=== PATIENT | female | born 1950 | race Caucasian/White ===

== ENCOUNTER 2017-04-10 17:22 | Inpatient (IN) ==
--- NOTE | 2017-04-10 19:14 | Emergency Department Note ---
Arrival - Arrival Chief Complaint: Arrhythmia/Palpitations Stated Complaint: throwing up ED Nursing Triage Note: pt ambulatory to triage with c/o having n/v with palpitations. pt states onset today. pt states she was here last night in ER for n/v and sent home. Mode of Arrival: Ambulatory Time Seen by Provider: 04/10/17 19:11 - History of Present Illness HPI Narrative: This is a 67-year-old white female is otherwise healthy and who was initially seen on March 30 with intractable vomiting vertigo and hypokalemia for which he was admitted to [facility] and treated with intravenous potassium replacement and Phenergan and discharged after 4 days. Seemed to improve but the vomiting returned and she went to the emergency department in [facility] on April 06 for vertigo and intractable vomiting where laboratory tests were normal she was given intravenous fluids and medication for nausea and discharge. On April 07 and April 08 the patient had improvement in her symptoms. However on April 09 the vomiting returned with vertigo and she came to the emergency department at [facility] where she had normal laboratory tests and a CT scan which showed edematous antral wall thickening and mildly dilated small loops of bowel approximately but normal caliber distally. The patient was discharged but the vomiting returned this morning associated with vertigo she returned to the emergency department. The patient denies any chest pain syncope palpitations nor headache. There is no fever or chills. She has had no motor weakness or difficulty with speech. Since March 30 the patient says that she has lost 35 pounds. Allergies/Adverse Reactions: Allergies Allergy/AdvReac Type Severity Reaction Status Date / Time codeine AdvReac ANAPHYLAXIS Verified 04/10/17 17:54 Home Medications: Home Medications Medication Instructions Recorded Confirmed Type ALPRAZolam [Xanax] 1 mg PO BID PRN 04/09/17 04/09/17 History Celecoxib [Celebrex] 200 mg PO DAILY 04/09/17 04/09/17 History Estradiol Tab [Estrace Tab] 1 mg PO DAILY 04/09/17 04/09/17 History Fluoxetine HCl [Prozac] 40 mg PO QAM 04/09/17 04/09/17 History Metoclopramide Tab [Reglan Tab] 10 mg PO Q8H PRN #7 tablet 04/09/17 Rx Morphine Sulfate [Morphine ER Cap] 60 mg PO BID 04/09/17 04/09/17 History Ondansetron HCl 8 mg PO Q8H PRN 04/09/17 04/09/17 History Ondansetron Odt Tab [Zofran Odt] 4 mg PO Q8H PRN #10 tablet 04/09/17 Rx Pantoprazole Tab [Protonix Tab] 40 mg PO DAILY 04/09/17 04/09/17 History Temazepam [Restoril] 15 mg PO BEDTIME PRN 04/09/17 04/09/17 History Review of System - Review of System Constitutional: Absent: fever, night sweats Eyes: Absent: redness, vision change Head/Ears/Nose/Throat: Absent: epistaxis, nasal drainage Respiratory: Absent: respiratory distress, wheezing Cardiovascular: Absent: dyspnea on exertion, orthopnea, edema Gastrointestinal: Absent: nausea, vomiting Genitourinary female: Absent: dysuria, frequency Musculoskeletal: Absent: joint swelling, lower back pain, leg pain, neck pain Skin: Absent: change in color, change in hair/nails, pruritus Neurological: Absent: headache, numbness, paresthesias, confusion Psychiatric: Absent: anxiety Endocrine: Absent: as per HPI, heat intolerance, polydipsia Hematological/Lymphatic: Absent: easy bruising, lymphadenopathy Allergic/Immunologic: Absent: urticaria, itchy eyes Medical,Surgical,& Family Hx - Medical History Cardio: History of: Hypertension - Social History Smoking Status: Never smoker Frequency of Alcohol Use: None Type of Drug Use: None Exam Vital Signs: Vital Signs Temperature 99.6 F 04/10/17 17:50 Pulse Rate 99 H 04/10/17 17:50 Respiratory Rate 18 04/10/17 17:50 Blood Pressure 146/99 04/10/17 17:50 O2 Sat by Pulse Oximetry 100 04/10/17 17:50 - General General appearance: alert - Eye Eye exam: Present: PERRL, EOMI - ENT ENT exam: Present: normal exam, normal oropharynx - Neck Neck exam: Present: normal inspection, full ROM - Chest Chest inspection: Present: normal inspection - Respiratory Respiratory exam: Present: normal lung sounds bilaterally - Cardiovascular Cardiovascular exam: Present: regular rate, normal rhythm - Abdominal Exam Abdominal exam: Present: soft, normal bowel sounds - Extremities Exam Extremities exam: Present: normal inspection, full ROM - Back Exam Back exam: Present: normal inspection, full ROM - Neurological Exam Neurological exam: Present: alert, oriented X3 - Psychiatric Psychiatric exam: Present: normal affect, normal mood - Skin Skin exam: Present: warm, dry Course Course Narrative: The patient's CT scan of the brain is normal. A repeat the CT scan of the abdomen did not show a small bowel obstruction or any other explanation for her intractable vomiting. The patient has not had vertigo while in the emergency department. The laboratory tests are normal. The abdominal exam is nonsurgical. Vital signs are normal. However the patient still feels nauseated. The case was discussed with the hospitalist who agreed to admit the patient because of the 35 pound weight loss ongoing vomiting and vertigo. She will be admitted for consideration of an MRI scan of the brain for possible cerebellar lesion causing the vertigo and to manage her intractable vomiting. Results - Labs CBC & BMP: 04/10/17 19:14 04/10/17 19:14 Disposition Clinical Impression: Intractable vomiting, Vertigo Disposition: Disch To Home/Self Care
[2017-04-10] MEDS ORDERED: SODIUM CHLORIDE 0.9% 1,000 ML IV STA (19:32)
[2017-04-10] MEDS ORDERED: ONDANSETRON 4 MG/2 ML VIAL IV STA (19:34)
[2017-04-10] MEDS ORDERED: MECLIZINE 25 MG TABLET PO STA (19:34)
[2017-04-10] MEDS ORDERED: MECLIZINE 25 MG TABLET ONE (19:50)
[2017-04-10] MEDS ORDERED: ONDANSETRON 4 MG/2 ML VIAL ONE (19:50)
[2017-04-10 19:58] LABS: Basophils % 0.2 % (0.0-0.8); Eosinophils % 0.3 % (0.00-10.9); Hematocrit 37.3 VOL% (35.7-47.0); Hemoglobin 13.3 GM/DL (12.0-16.0); Immature Granulocytes % 0.6 %; Immature Granulocytes Absolute 0.04 #; Lymphocytes # 1.7 10*3/uL (1.4-4.0); Lymphocytes % 27.8 % (21.3-54.2); Mean Corpuscular HGB Conc 35.7 GM/DL (32-36); Mean Corpuscular Hemoglobin 31 PG (27-34); Mean Corpuscular Volume 86.3 FL (87-102); Mean Platelet Volume 9.2 FL (9.6-12.0); Monocytes # 0.6 10*3/uL (0.11-0.8); Monocytes % 8.8 % (1.7-12.7); Neutrophils # 3.9 10*3/uL (1.4-7.4); Neutrophils % 62.3 % (38.7-73.9); Platelet Count 272 T/CUMM (130-400); Red Blood Count 4.32 MC/CUMM (3.8-5.5); Red Cell Distribution Width 13.2 % (9.3-17.3); White Blood Count 6.3 T/CUMM (4-12)
[2017-04-10 20:09] LABS: Albumin 4.3 G/DL (3.4-5.0); Bilirubin,Total 0.7 MG/DL (0.2-1.0); Calcium 9.2 MG/DL (8.5-10.1); Osmolality,Calculated 278.3 MOS/KG (273-304); Potassium 3.4 MMOL/L (3.5-5.1); Total Protein 7.1 G/DL (6.4-8.3)
--- NOTE | 2017-04-10 20:10 | CT Report ---
History of vertigo and right-sided headache The ventricles are normal in size. No acute intracranial hemorrhage, mass effect, or evidence of acute cortical stroke seen. Impression: No acute intracranial pathology seen. The CT exam was performed using one or more of the following dose reduction techniques: Automated exposure control, adjustment of the mA and/or kV according to patient size, or use of iterative reconstruction technique. PROCEDURE INTERPRETED AT [facility] DEPARTMENT OF RADIOLOGY Final Report Signed by: Dr. Shannan Chen
--- NOTE | 2017-04-10 20:17 | CT Report ---
History is abdominal pain and distention 100 cc Omni 350 utilized Comparison no focal defects seen in the liver, spleen, pancreas, adrenals, or kidneys. Again seen are bilateral 2-4 mm renal calculi Again seen is edematous wall thickening of the antrum of the stomach Clips present in the gallbladder fossa No enlarged retroperitoneal nodes seen Pelvis: no free fluid or focal inflammatory change is seen. Impression: 1. Diffuse edematous wall thickening in the antrum of the stomach again seen 2. Bilateral nephrolithiasis The CT exam was performed using one or more of the following dose reduction techniques: Automated exposure control, adjustment of the mA and/or kV according to patient size, or use of iterative reconstruction technique. PROCEDURE INTERPRETED AT [facility] DEPARTMENT OF RADIOLOGY Final Report Signed by: Dr. Shannan Chen
[2017-04-10 20:29] LABS: Lactic Acid 1.1 MMOL/L (0.4-2.0)
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
[2017-04-10] MEDS ORDERED: hydrALAZINE 20 MG/1 ML VIAL IV PRN (23:17)
[2017-04-10] MEDS ORDERED: PANTOPRAZOLE 40 MG VIAL IV ONE (23:17)
[2017-04-10] MEDS ORDERED: DIAZEPAM 10 MG/2 ML SYRINGE IV PRN (23:17)
[2017-04-10] MEDS ORDERED: SODIUM CHLORIDE 0.9% 1,000 ML IV ONE (23:17)
[2017-04-11] MEDS: POTASSIUM CHLORIDE RIDER 10 MEQ in PREMIX 1 EACH IV SCH ×5 (00:27→09:26)
[2017-04-11] MEDS: CLINDAMYCIN INJ 600 MG in PREMIX 1 EACH IV SCH ×3 (00:28→16:30)
[2017-04-11] MEDS: SODIUM CHLORIDE 0.9% 1,000 ML IV SCH ×5 (00:28→23:57)
[2017-04-11] MEDS: metroNIDAZOLE INJ 500 MG in PREMIX 1 EACH IV SCH ×4 (01:17→18:00)
[2017-04-11] MEDS: ONDANSETRON 4 MG/2 ML VIAL IV PRN ×2 (01:19→11:56)
[2017-04-11] MEDS: MORPHINE 2 MG/1 ML SYRINGE IV PRN (01:24)
[2017-04-11 03:21] LABS: Apearance,Urine CLEAR (Clear); Bilirubin,Urine Negative (Negative); Blood, Urine Negative (Negative); Glucose,Urine (UA) Negative (Negative); Ketones,Urine 20 mg/dL (Negative); Mucus,Urine Occasional /LPF (Occasional); Nitrite,Urine Negative (Negative); Protein,Urine Negative; Squamous Epithelial Cell,Urine Occasional /HPF (0-10); Urine Color Yellow (Yellow); Urine Urobilinogen < 2.0 EU/DL (0.2-1.0)
[2017-04-11 06:02] LABS: Basophils % 0.4 % (0.0-0.8); Eosinophils % 0.8 % (0.00-10.9); Hematocrit 29.9 VOL% (35.7-47.0); Hemoglobin 10.6 GM/DL (12.0-16.0); Immature Granulocytes % 0.4 %; Immature Granulocytes Absolute 0.02 #; Lymphocytes # 1.9 10*3/uL (1.4-4.0); Lymphocytes % 38.6 % (21.3-54.2); Mean Corpuscular HGB Conc 35.5 GM/DL (32-36); Mean Corpuscular Hemoglobin 31 PG (27-34); Mean Corpuscular Volume 86.9 FL (87-102); Mean Platelet Volume 9.5 FL (9.6-12.0); Monocytes # 0.5 10*3/uL (0.11-0.8); Monocytes % 9.7 % (1.7-12.7); Neutrophils # 2.5 10*3/uL (1.4-7.4); Neutrophils % 50.1 % (38.7-73.9); Platelet Count 225 T/CUMM (130-400); Red Blood Count 3.44 MC/CUMM (3.8-5.5); Red Cell Distribution Width 13.3 % (9.3-17.3)
[2017-04-11 06:24] LABS: Albumin 3.2 G/DL (3.4-5.0); Bilirubin,Total 0.6 MG/DL (0.2-1.0); Osmolality,Calculated 277.3 MOS/KG (273-304); Potassium 3.5 MMOL/L (3.5-5.1); Total Protein 5.6 G/DL (6.4-8.3)
[2017-04-11] MEDS ORDERED: PROPOFOL 200 MG/20 ML VIAL IV ONE (09:00)
[2017-04-11] MEDS ORDERED: LIDOCAINE 2% 5 ML VIAL ONE (09:00)
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
[2017-04-11] MEDS: PANTOPRAZOLE 40 MG VIAL IV SCH (09:36)
--- NOTE | 2017-04-11 11:45 | History and Physical Update ---
History and Physical Update - History and Physical H&P was reviewed, the patient examined and there: are no changes in the patients condition since last H&P was completed. - Physical Exam Mental Status: alert and oriented Heart: regular rate and rhythm Lung: clear to auscultation Abdomen: within normal limits Vitals: within normal limits
[2017-04-11] MEDS ORDERED: ONDANSETRON 4 MG/2 ML VIAL ONE (11:55)
--- NOTE | 2017-04-11 11:57 | Operative Note ---
Date of procedure: 04/11/17 Pre-op diagnosis: Nausea/vomiting, antral thickening on CT Procedure: Procedure: Esophagogastroduodenoscopy Brief clinical abstract: 67-year-old female has been sick for the last 2 weeks with recurrent nausea/vomiting and abdominal pain which she says is mainly lower abdominal pain. She has lost over 20 pounds weight since this began. On CT abdomen here there is thickening in the gastric antrum. Indication for procedure: Recurrent nausea/vomiting, abnormal CT appearance of stomach Endoscopic findings:[After informed consent was obtained, the patient was placed in the left lateral decubitus position. The gastroscope was inserted in the upper esophagus under direct vision with no resistance encountered. Esophageal mucosa appeared normal with squamocolumnar junction sharply demarcated above a small hiatal hernia. The endoscope was advanced in the stomach which was carefully examined including retroflexed view of the cardia and fundus. There was some patchy subepithelial hemorrhage in the gastric antrum but no ulcers or mass-effect seen. Remainder the stomach appeared normal. The pyloric channel, duodenal bulb, second and third portion of the duodenum appeared normal. The endoscope was removed and patient appeared to tolerate the procedure well. Impression: #1 small hiatal hernia #2 moderate antritis Recommendations: Continue PPI therapy for now. Continue empiric antibiotics for now for presumed infectious GI process. She is due for surveillance colonoscopy at some point with history of colon polyps. Anesthesia: other (tiva) Surgeon / Physician: Santiago Tavera Estimated blood loss: none Specimens: none sent Condition: stable Disposition: post procedure unit Results - Labs CBC & BMP: 04/11/17 04:42 04/11/17 04:42 Discharge Plan - Discharge Medications No Action Estradiol Tab [Estrace Tab] 1 mg PO DAILY Celecoxib [Celebrex] 200 mg PO DAILY Temazepam [Restoril] 15 mg PO BEDTIME PRN PRN Reason: Sleep Fluoxetine HCl [Prozac] 40 mg PO QAM Pantoprazole Tab [Protonix Tab] 40 mg PO DAILY Morphine Sulfate [Morphine ER Cap] 60 mg PO BID ALPRAZolam [Xanax] 1 mg PO BID PRN PRN Reason: Anxiety Ondansetron HCl 8 mg PO Q8H PRN PRN Reason: Nausea/Vomiting Metoclopramide Tab [Reglan Tab] 10 mg PO Q8H PRN #7 tablet PRN Reason: Nausea - Follow Up or Referral - Forms/Instructions
--- NOTE | 2017-04-11 12:23 | Hospitalist Progress Note ---
Assessment and Plan (1) Intractable vomiting Status: Acute Assessment and plan: 1)gastritis at EGD- on PPI. she is not vomiting since admission, but hasn't eaten either. 2)hypokalemia- replaced 3)weight loss- reports 30 pound weight loss over 3.5 weeks during this illness. She was admitted at [facility] and at [facility] for IVF over the course of it but symptoms persisted. She has been given reglan, zofran and phenergan. She is also on prozac, morphine, and restoril and xanax. 4)meds reconciled. Current Visit: Yes (2) Hypokalemia Status: Acute Current Visit: Yes (3) Hx of gastritis Status: Chronic Current Visit: Yes Hospitalist: Subjective Interval history: Mrs Vance is feeling better this morning without vomiting since admission. She denies pain other than soreness in her abdominal muscles from vomiting. At EGD she had antritis. Exam - Constitutional Vitals: Period Temp Pulse Resp BP Sys/Orosco Pulse Ox Last 24 Hr 97.6 F-99.6 F 74-99 16-20 146-181/65-99 94-100 General appearance: normal weight, no acute distress - Eye Eye exam: Present: EOMI. Absent: scleral icterus - Respiratory Respiratory exam: Present: clear to auscultation bilaterally - Cardiovascular Cardiovascular exam: Present: regular rate and rhythm - GI/Abdominal GI/Abdominal exam: Present: normal bowel sounds, soft. Absent: tenderness - Extremities Exam Extremities exam: Absent: edema - Neurological Exam Neurological exam: Present: alert, oriented X3 - Skin Skin exam: Present: warm. Absent: rash Results - Labs CBC & BMP: 04/11/17 04:42 04/11/17 04:42 Lab Results: I have reviewed the past 24 hour labs Quality Measures - Stroke Symptom Onset Unknown: No
[2017-04-11] MEDS: ENOXAPARIN 40 MG/0.4 ML SYRINGE SUBCUT SCH (13:09)
--- NOTE | 2017-04-11 13:18 | Anesthesia Post-Op ---
Anesthesia Post OP - Post Ansesthetic Evaluation Patient seen in post op: Yes Resp: within normal limits CV: within normal limits Mental: within normal limits Temp: within normal limits Qame-He-Uegiscswt: within normal limits Nausea and Vomiting: within normal limits Pain: within normal limits
[2017-04-11] MEDS: ALPRAZolam 0.5 MG TABLET PO PRN ×2 (13:21→21:14)
--- NOTE | 2017-04-11 15:29 | Order Completion Report ---
See report scanned to EMR
[2017-04-11] MEDS: ONDANSETRON 4 MG TABLET PO PRN (21:14)
[2017-04-11] MEDS: MORPHINE ER 30 MG TABLET PO SCH (21:15)
[2017-04-12] MEDS: metroNIDAZOLE INJ 500 MG in PREMIX 1 EACH IV SCH ×4 (01:34→18:15)
[2017-04-12 05:30] LABS: Basophils % 0.6 % (0.0-0.8); Eosinophils # 0.2 10*3/uL (0.0-0.87); Eosinophils % 3.8 % (0.00-10.9); Hemoglobin 10.8 GM/DL (12.0-16.0); Immature Granulocytes % 0.2 %; Immature Granulocytes Absolute 0.01 #; Lymphocytes # 1.2 10*3/uL (1.4-4.0); Lymphocytes % 24.1 % (21.3-54.2); Mean Corpuscular HGB Conc 34.8 GM/DL (32-36); Mean Corpuscular Hemoglobin 31 PG (27-34); Mean Corpuscular Volume 88.1 FL (87-102); Mean Platelet Volume 9.1 FL (9.6-12.0); Monocytes # 0.4 10*3/uL (0.11-0.8); Monocytes % 9.2 % (1.7-12.7); Neutrophils % 62.1 % (38.7-73.9); Platelet Count 201 T/CUMM (130-400); Red Blood Count 3.52 MC/CUMM (3.8-5.5); Red Cell Distribution Width 13.2 % (9.3-17.3); White Blood Count 4.8 T/CUMM (4-12)
[2017-04-12 05:59] LABS: Albumin 3.3 G/DL (3.4-5.0); Bilirubin,Total 0.8 MG/DL (0.2-1.0); Calcium 8.4 MG/DL (8.5-10.1); Osmolality,Calculated 279.1 MOS/KG (273-304); Potassium 3.4 MMOL/L (3.5-5.1); Total Protein 5.8 G/DL (6.4-8.3)
[2017-04-12] MEDS: PANTOPRAZOLE 40 MG VIAL IV SCH (08:24)
[2017-04-12] MEDS: METOCLOPRAMIDE 10 MG TABLET PO PRN ×2 (08:25→21:00)
[2017-04-12] MEDS: ONDANSETRON 4 MG TABLET PO PRN (08:25)
[2017-04-12] MEDS: FLUoxetine 20 MG CAPSULE PO SCH (08:25)
[2017-04-12] MEDS: ALPRAZolam 0.5 MG TABLET PO PRN ×2 (08:25→21:00)
[2017-04-12] MEDS: ACETAMINOPHEN 325 MG TABLET PO PRN (08:25)
[2017-04-12] MEDS: CLINDAMYCIN INJ 600 MG in PREMIX 1 EACH IV SCH ×2 (08:26)
[2017-04-12] MEDS: ENOXAPARIN 40 MG/0.4 ML SYRINGE SUBCUT SCH (08:27)
[2017-04-12] MEDS: MORPHINE ER 30 MG TABLET PO SCH (08:28)
[2017-04-12] MEDS ORDERED: PHENOL 1.4% THROAT SPRAY 177 ML BOTTLE PO PRN (08:50)
--- NOTE | 2017-04-12 09:02 | Gastrointestinal Progress Note ---
Assessment and Plan (1) Abdominal pain Status: Acute Assessment and plan: 04/12-abdominal pain improved. No further vomiting with mild nausea this morning. EGD findings noted. Start clear liquid diet. Plan an addendum to followed by Dr. Tavera. 04/11-two-week history of lower quadrant abdominal pain with initial onset of nausea and vomiting followed by diarrhea, with diarrhea now resolved. Continued episodes of intractable nausea vomiting. Prior history of gastric ulcers with last EGD in September of this year. Obtain endoscopic records from endoscopic clinic. CT of abdomen results are noted as below. We will plan to proceed with EGD today to further evaluate. Plan an addendum to followed by Dr. Tavera. Current Visit: Yes (2) Intractable nausea and vomiting Status: Acute Assessment and plan: 04/12-mild nausea without vomiting. Abdominal pain improved. Start clear liquid diet. Plan an addendum to followed by Dr. Tavera. 04/11-two-week history of cyclic episodes of intractable nausea and vomiting without coffee-ground emesis or hematemesis. Inpatient stay upon onset noted as below. Reported 30 pound weight loss since onset. Will plan for EGD for further evaluation today. Current Visit: No Gastroenterology - PN: Subj Interval history: CC: Nausea and vomiting Patient is seen awake and alert lying in bed. States she had an uneventful night. Denies any abdominal pain other than some generalized soreness in her abdomen. She states she is a little nauseated this morning but feels as but she has not had anything eaten several days. She is afebrile. Abdomen is soft , nontender. EGD findings noted with small hiatal hernia and moderate antritis. WBCs are unremarkable. Discussed with patient that after she convalesces from this illness, we will need to schedule her to come back for an outpatient colonoscopy. Patient verbalizes understanding ROS: Denies shortness of breath or chest pain Exam (Progress Note) - Constitutional Vitals: Period Temp Pulse Resp BP Sys/Orosco Pulse Ox Last 24 Hr 97.7 F-99.0 F 60-86 16-20 107-181/62-90 92-100 - Other Additional findings: General appearance: normal weight, no acute distress - Head Head exam: Present: normal inspection, normocephalic - Eye Eye exam: Present: other (lids and conjunctiva unremarkable). Absent: scleral icterus - ENT ENT exam: Present: normal exam - Neck Neck exam: Present: normal inspection - Respiratory Respiratory exam: Present: clear to auscultation bilaterally. Absent: rales, rhonchi, wheezes - Cardiovascular Cardiovascular exam: Present: regular rate and rhythm. Absent: diastolic murmur , JVD, systolic murmur - GI/Abdominal GI/Abdominal exam: Present: normal bowel sounds, tenderness (Lower quadrant), soft. Absent: ascites, distended, mass, organomegaly - Extremities Exam Extremities exam: Present: normal inspection, full ROM - Back Exam Back exam: Present: normal inspection - Neurological Exam Neurological exam: Present: alert, oriented X3 - Psychiatric Psychiatric exam: Present: normal affect, normal mood - Skin Skin exam: Present: normal color, warm, dry Results - Labs CBC & BMP: 04/12/17 04:48 04/12/17 04:48 Lab Results: I have reviewed the past 24 hour labs
--- NOTE | 2017-04-12 09:58 | Hospitalist Progress Note ---
Assessment and Plan (1) Intractable vomiting Status: Acute Assessment and plan: 1)gastritis at EGD- on PPI. she is not vomiting since admission, begin clears. Stop clinda but keep flagyl until we get Cdiff specimen (though her diarrhea stopped, she has been in hospital 3 times in last weeks, lost 30pounds, etc). 2)hypokalemia- replace again 3)weight loss- reports 30 pound weight loss over 3.5 weeks during this illness. She was admitted at [place] and at [facility] for IVF over the course of it but symptoms persisted. She has been given reglan, zofran and phenergan. She is also on prozac, morphine, and restoril and xanax. 4)meds reconciled- she reports that she does not take the Morphine routinely and in fact only very rarely. She does take the Xanax and uses tyelnol mostly for pain. Takes Nucynta prn also (this is not on her home list). Current Visit: Yes (2) Hypokalemia Status: Acute Current Visit: Yes (3) Hx of gastritis Status: Chronic Current Visit: Yes Hospitalist: Subjective Interval history: Mrs Vance is feeling ok this morning- no more nausea or vomiting since admission and she is ready to try clears. She does not take the morphine, only the nucynta prn. She does take the xanax regularly. I will adjust her med rec accordingly. I am stopping the clinda since she is afebrile and has normal WBC with resolution of her symptoms. I'll continue the flagyl until we get stool studies - it might not happen because her diarrhea stopped a few days ago. Exam - Constitutional Vitals: Period Temp Pulse Resp BP Sys/Orosco Pulse Ox Last 24 Hr 97.7 F-99.0 F 60-86 16-20 107-181/62-90 92-100 General appearance: normal weight, no acute distress - Eye Eye exam: Present: EOMI. Absent: scleral icterus - Respiratory Respiratory exam: Present: clear to auscultation bilaterally - Cardiovascular Cardiovascular exam: Present: regular rate and rhythm - GI/Abdominal GI/Abdominal exam: Present: normal bowel sounds, soft. Absent: tenderness - Extremities Exam Extremities exam: Absent: edema - Neurological Exam Neurological exam: Present: alert, oriented X3, CN II-XII intact. Absent: motor sensory deficit - Psychiatric Psychiatric exam: Present: normal affect, normal mood - Skin Skin exam: Present: warm, dry Results - Labs CBC & BMP: 04/12/17 04:48 04/12/17 04:48 Lab Results: I have reviewed the past 24 hour labs Quality Measures - Stroke Symptom Onset Unknown: No
[2017-04-12] MEDS ORDERED: POTASSIUM CHLORIDE 20 MEQ TABLET PO ONE (10:15)
[2017-04-12] MEDS: SODIUM CHLORIDE 0.9% 1,000 ML IV SCH (11:09)
[2017-04-12] MEDS: ONDANSETRON 4 MG/2 ML VIAL IV PRN ×2 (11:25→21:00)
[2017-04-12] MEDS ORDERED: PROMETHAZINE 25 MG/1 ML VIAL IM PRN (15:38)
[2017-04-12] MEDS: MORPHINE 2 MG/1 ML SYRINGE IV PRN (16:10)
[2017-04-12] MEDS: KETOROLAC 30 MG/1 ML VIAL IV PRN (21:00)
[2017-04-12] MEDS: TEMAZEPAM 15 MG CAPSULE PO PRN (21:00)
[2017-04-13] MEDS: metroNIDAZOLE INJ 500 MG in PREMIX 1 EACH IV SCH ×5 (00:19→23:35)
[2017-04-13] MEDS: KETOROLAC 30 MG/1 ML VIAL IV PRN ×3 (06:09→18:34)
[2017-04-13] MEDS: ONDANSETRON 4 MG/2 ML VIAL IV PRN ×3 (06:09→18:34)
--- NOTE | 2017-04-13 07:57 | Gastrointestinal Progress Note ---
Assessment and Plan - Time spent with patient Time spent with patient: Greater than 30 minutes (1) Abdominal pain Status: Acute Current Visit: Yes (2) Intractable nausea and vomiting Status: Acute Current Visit: No (3) Other specified counseling Status: Acute Current Visit: Yes Exam (Progress Note) - Constitutional Vitals: Period Temp Pulse Resp BP Sys/Orosco Pulse Ox Last 24 Hr 96.7 F-99.6 F 74-91 18-20 133-168/73-99 94-99 Results - Labs CBC & BMP: 04/12/17 04:48 04/12/17 04:48 Note Addendum: PLEASE NOTE -- automatic citation of patient information is unavoidable in this electronic note. I have made a reasonable effort to review the information cited , but it is not a part of my evaluation, impression, or recommendation unless specifically discussed in the dictated text that follows. As well, voice recognition software was used in the creation of this clinical note. Reasonable effort was made to identify and correct gross errors. Despite proofreading, errors in process improvement engineer may be present, including nonsense verbiage at times. If you encounter such an error, please contact me at for discussion and correction. -- Mague Chief complaint: abdominal pain Subjective: the patient is a 67-year-old female seen for follow-up of abdominal pain. The patient was admitted three days ago with primary complaint of same and has undergone sufficient laboratory, radiologic, and endoscopic evaluation with no clear etiologic finding to date. She has started a clear liquid diet and is tolerating that to some extent. She reports decreased nausea. She has one bowel movement reported overnight with no blood, mucus, or pus. Medications: Tylenol 3 to 25 mg every four hours as needed, [place] 5/325 every four hours as needed, Xanax 1 mg twice daily as needed for anxiety, Lovenox 40 mg daily, Prozac 40 mg daily, hydralazine 10 mg every six hours as needed for hypertension, Toradol 30 mg every six hours as needed, Reglan 10 mg every eight hours as needed for nausea, Flagyl 500 mg every six hours, morphine 2 mg every four hours as needed, Zofran 8 mg every eight hours as needed, Protonix 40 mg daily, or septic spray as needed for sore throat, Phenergen 25 mg every six hours as needed, Restoril 50 mg daily Review of Symptoms: 12 point review of symptoms was negative except as noted above Physical examination: Vital Signs: Current vital signs reviewed. General Appearance: lying in bed. Comfortable. No apparent distress. Head: Normocephalic. Eyes: no scleral icterus. No scleral injection. No conjunctival pallor. Oral Cavity: Odor of breath was normal. No drooling was observed. Lips showed no abnormalities. Lungs: Respiration rhythm and depth was normal. Cardiovascular: Heart rate and rhythm were normal. Abdomen: abdomen was not distended. Abdominal auscultation revealed no abnormalities. Ascites was not discovered. Abdominal palpation revealed no tenderness and no hepatosplenomegaly. Musculoskeletal System: musculoskeletal system was grossly normal. Neurological: level of consciousness was normal. Speech was normal. No coordination/cerebellum abnormalities were noted. Skin: Gen. appearance was normal. Color and pigmentation were normal. No skin lesions were appreciated. Laboratory: no new laboratories today Radiology: -- CT abdomen/pelvis, 04/10/17: diffuse of them is wall thickening in the antrum of the stomach; bilateral nephrolithiasis; no focal defects in the liver , spleen, pancreas, adrenals, kidneys Impressions: #1. Abdominal pain -- the clinical pattern is most consistent with a infectious etiology. Patient does report travel just prior to onset of symptoms. To date, no agent has been identified. Overall, there does seem to be a pattern of improvement but will need to continue to support with volume and electrolyte management as well as symptom control, at least for the short term. #2. Nausea with vomiting -- discussed above. #3. Other specified counseling -- Patient seen for greater than 30 minutes. Greater than 50% of this time was spent counseling regarding differential diagnosis, likely diagnosis,, diagnostic and therapeutic options, risks, benefits, and alternatives to procedures and medications, informed consent, and plan of care generally. Patient has expressed understanding and wishes to proceed. Recommendations: -- can you volume and electrolyte management -- continued anti-emetic as needed -- advance diet as tolerated -- we will continue to follow with you
[2017-04-13] MEDS: FLUoxetine 20 MG CAPSULE PO SCH (08:54)
[2017-04-13] MEDS: ENOXAPARIN 40 MG/0.4 ML SYRINGE SUBCUT SCH (08:54)
[2017-04-13] MEDS: ALPRAZolam 0.5 MG TABLET PO PRN ×2 (08:54→23:15)
[2017-04-13] MEDS: PANTOPRAZOLE 40 MG VIAL IV SCH (08:54)
[2017-04-13] MEDS: METOCLOPRAMIDE 10 MG TABLET PO PRN (08:54)
--- NOTE | 2017-04-13 15:26 | Hospitalist Progress Note ---
Assessment and Plan (1) Hypokalemia Status: Acute Assessment and plan: BMP in a.m. Current Visit: Yes (2) Intractable vomiting Status: Resolved Assessment and plan: This appears to be improving. Current Visit: Yes (3) Hx of gastritis Status: Chronic Current Visit: Yes (4) Intractable nausea and vomiting Status: Resolved Current Visit: No Hospitalist: Subjective Interval history: Patient is resting. She has been able to take sips of clears. Nausea is improving. No vomiting today. Serum potassium noted be 3.4. No fevers or chills. Exam - Constitutional Vitals: Period Temp Pulse Resp BP Sys/Orosco Pulse Ox Last 24 Hr 96.7 F-99.5 F 74-92 18-20 129-168/72-99 93-99 General appearance: normal weight - Head Head exam: Present: normal inspection - Eye Eye exam: Present: EOMI Pupils: Present: MARISSA - ENT ENT exam: Present: normal exam - Neck Neck exam: Present: normal inspection - Respiratory Respiratory exam: Present: clear to auscultation bilaterally - Cardiovascular Cardiovascular exam: Present: regular rate and rhythm - GI/Abdominal GI/Abdominal exam: Present: normal bowel sounds - Extremities Exam Extremities exam: Present: normal inspection - Expanded Right Lower Hip exam: Present: normal inspection - Neurological Exam Neurological exam: Present: alert, oriented X3 - Psychiatric Psychiatric exam: Present: normal affect - Skin Skin exam: Present: normal color Results - Labs CBC & BMP: 04/12/17 04:48 04/12/17 04:48 Quality Measures - Stroke Symptom Onset Unknown: No
[2017-04-13] MEDS: TEMAZEPAM 15 MG CAPSULE PO PRN (23:15)
[2017-04-14] MEDS: MORPHINE 2 MG/1 ML SYRINGE IV PRN (00:47)
[2017-04-14] MEDS: metroNIDAZOLE INJ 500 MG in PREMIX 1 EACH IV SCH ×3 (05:34→18:28)
[2017-04-14 07:35] LABS: Calcium 9.1 MG/DL (8.5-10.1); Magnesium 1.6 MG/DL (1.8-2.4); Osmolality,Calculated 280.1 MOS/KG (273-304); Potassium 3.2 MMOL/L (3.5-5.1)
--- NOTE | 2017-04-14 08:24 | Hospitalist Progress Note ---
Assessment and Plan - Time spent with patient Time spent with patient: Less than 30 minutes (1) Abdominal pain Status: Resolved Assessment and plan: Patient's abdominal discomfort has resolved as has her nausea and vomiting. We are advancing her diet. She is continuing on antibiotics at this time. No infectious etiology has been identified. Hopefully can be discharged within the next 24 hours. Current Visit: Yes (2) Intractable nausea and vomiting Status: Resolved Assessment and plan: Patient has no complaints of nausea or vomiting at this time. Will advance to regular diet. Current Visit: No (3) Hypomagnesemia Status: Acute Assessment and plan: We will provide magnesium supplementation today with follow-up in a.m. Current Visit: Yes (4) Hypokalemia Status: Acute Assessment and plan: Patient has mild hypokalemia which will be replaced at this time with follow- up in the a.m. Current Visit: Yes Hospitalist: Subjective Interval history: Patient has been seen and examined. Chart has been reviewed. She states that she feels much better and has no nausea, vomiting, diarrhea. She denies any abdominal pain at this time. She is only been on clear liquids to date. Exam - Constitutional Vitals: Period Temp Pulse Resp BP Sys/Orosco Pulse Ox Last 24 Hr 97.5 F-98.5 F 77-92 16-18 125-161/70-94 95-99 General appearance: no acute distress - Head Head exam: Present: normocephalic, atraumatic - Eye Eye exam: Present: EOMI Pupils: Present: MARISSA - ENT ENT exam: Present: normal exam - Neck Neck exam: Present: normal inspection - Respiratory Respiratory exam: Present: clear to auscultation bilaterally. Absent: rales, rhonchi, wheezes - Cardiovascular Cardiovascular exam: Present: regular rate and rhythm. Absent: systolic murmur , tachycardia - GI/Abdominal GI/Abdominal exam: Present: normal bowel sounds, soft. Absent: mass, tenderness , rebound - Extremities Exam Extremities exam: Present: normal capillary refill. Absent: calf tenderness, edema - Back Exam Back exam: Present: normal inspection - Neurological Exam Neurological exam: Present: alert, oriented X3, CN II-XII intact. Absent: motor sensory deficit - Psychiatric Psychiatric exam: Present: normal affect, normal mood. Absent: agitated, anxious - Skin Skin exam: Present: warm, dry. Absent: rash Results - Labs CBC & BMP: 04/12/17 04:48 04/14/17 05:05 Lab Results: I have reviewed the past 24 hour labs Quality Measures - Stroke Symptom Onset Unknown: No
[2017-04-14] MEDS ORDERED: POTASSIUM CHLORIDE IV SCH (08:30)
[2017-04-14] MEDS ORDERED: [UNRECOGNIZED DRUG - OTHER] IV SCH (08:30)
[2017-04-14] MEDS ORDERED: MAGNESIUM SULF IV SCH (08:30)
[2017-04-14] MEDS: FLUoxetine 20 MG CAPSULE PO SCH (10:03)
[2017-04-14] MEDS: PANTOPRAZOLE 40 MG TABLET PO SCH (10:04)
[2017-04-14] MEDS: ENOXAPARIN 40 MG/0.4 ML SYRINGE SUBCUT SCH (10:04)
[2017-04-14] MEDS: ALPRAZolam 0.5 MG TABLET PO PRN ×2 (10:26→20:25)
[2017-04-14] MEDS: ESTRADIOL 1 MG TABLET PO SCH (10:27)
[2017-04-14] MEDS: TEMAZEPAM 15 MG CAPSULE PO PRN (20:25)
[2017-04-15] MEDS: metroNIDAZOLE INJ 500 MG in PREMIX 1 EACH IV SCH ×5 (00:29→23:47)
[2017-04-15 06:31] LABS: Calcium 8.6 MG/DL (8.5-10.1); Magnesium 2.3 MG/DL (1.8-2.4); Osmolality,Calculated 281.1 MOS/KG (273-304); Potassium 3.6 MMOL/L (3.5-5.1)
[2017-04-15] MEDS: PANTOPRAZOLE 40 MG TABLET PO SCH (08:30)
[2017-04-15] MEDS: FLUoxetine 20 MG CAPSULE PO SCH (08:30)
[2017-04-15] MEDS: ALPRAZolam 0.5 MG TABLET PO PRN ×2 (08:30→22:43)
[2017-04-15] MEDS: ESTRADIOL 1 MG TABLET PO SCH (08:30)
[2017-04-15] MEDS: ENOXAPARIN 40 MG/0.4 ML SYRINGE SUBCUT SCH (08:30)
--- NOTE | 2017-04-15 09:18 | Gastrointestinal Progress Note ---
Assessment and Plan (1) Abdominal pain Status: Resolved Assessment and plan: 04/15-Continued lower abdominal soreness/discomfort. Occasional mild nausea. No vomiting. Tolerating small amounts of regular diet. Change back to clear liquids , start bowel prep and plan to proceed with Colonoscopy on tomorrow. Hold Lovenox. Plan and addendum to follow by Dr Tavera. 04/12-abdominal pain improved. No further vomiting with mild nausea this morning. EGD findings noted. Start clear liquid diet. Plan an addendum to followed by Dr. Tavera. 04/11-two-week history of lower quadrant abdominal pain with initial onset of nausea and vomiting followed by diarrhea, with diarrhea now resolved. Continued episodes of intractable nausea vomiting. Prior history of gastric ulcers with last EGD in September of this year. Obtain endoscopic records from endoscopic clinic. CT of abdomen results are noted as below. We will plan to proceed with EGD today to further evaluate. Plan an addendum to followed by Dr. Tavera. Current Visit: Yes (2) Intractable nausea and vomiting Status: Resolved Assessment and plan: 04/12-mild nausea without vomiting. Abdominal pain improved. Start clear liquid diet. Plan an addendum to followed by Dr. Tavera. 04/11-two-week history of cyclic episodes of intractable nausea and vomiting without coffee-ground emesis or hematemesis. Inpatient stay upon onset noted as below. Reported 30 pound weight loss since onset. Will plan for EGD for further evaluation today. Current Visit: No Gastroenterology - PN: Subj Interval history: CC: Abdominal pain Pt is seen, awake and alert, sitting up in bed. States she is feeling better at this time. She denies any further nausea or vomiting. She states that her appetite is improving and she is tolerating small amounts of a regular diet at this time. She is still complaining of some lower abdominal soreness/discomfort at times that she states she has to "bring my knees up to my chest for relief". She is resting comfortably this morning. She does have some nausea she states at times but it is improved drastically from admission. She had a small normal bowel movement this morning. She is well past due for a colonoscopy and discussed bringing her back for this as an outpatient however pt states that she lives alone and is concerned with trying to do this prep at home alone. Due to the continued complaint of abdominal pain, discussed with Dr Tavera and Dr Barnes going ahead today and prepping her for a colonoscopy on tomorrow. They are both in agreement therefore at this time we will plan to proceed with this. Abdomen is soft, mild tenderness to palpation. ROS: Denies SOB or chest pain Exam (Progress Note) - Constitutional Vitals: Period Temp Pulse Resp BP Sys/Orosco Pulse Ox Last 24 Hr 97.1 F-98.4 F 78-83 16-18 135-153/80-89 95-98 General appearance: normal weight, no acute distress - Head Head exam: Present: normal inspection, normocephalic - Eye Eye exam: Present: other (lids and conjunctiva unremarkable). Absent: scleral icterus - ENT ENT exam: Present: normal exam, normal oropharynx - Neck Neck exam: Present: normal inspection - Respiratory Respiratory exam: Present: clear to auscultation bilaterally. Absent: rales, rhonchi, wheezes - Cardiovascular Cardiovascular exam: Present: regular rate and rhythm. Absent: diastolic murmur , JVD, systolic murmur - GI/Abdominal GI/Abdominal exam: Present: normal bowel sounds, tenderness, soft. Absent: ascites, distended, mass, organomegaly - Extremities Exam Extremities exam: Present: normal inspection, full ROM - Back Exam Back exam: Present: normal inspection - Neurological Exam Neurological exam: Present: alert, oriented X3 - Psychiatric Psychiatric exam: Present: normal affect, normal mood - Skin Skin exam: Present: normal color, warm, dry Results - Labs CBC & BMP: 04/12/17 04:48 04/15/17 05:26 Lab Results: I have reviewed the past 24 hour labs
[2017-04-15] MEDS ORDERED: BISACODYL 5 MG TABLET PO ONE (12:00)
[2017-04-15] MEDS ORDERED: POLYETHYLENE GLYCOL POWDER 255 GM BOTTLE PO ONE (13:00)
--- NOTE | 2017-04-15 13:54 | Hospitalist Progress Note ---
Assessment and Plan - Time spent with patient Time spent with patient: Less than 30 minutes (1) Abdominal pain Status: Resolved Assessment and plan: 67-year-old white female admitted by the hospitalist on 04/10/2017 with intractable nausea and vomiting with abdominal pain. She underwent EGD on 04/[address] Tavera where he found moderate antritis and a small hiatal hernia. Patient's nausea and vomiting did resolve and she was tolerating a regular diet. Patient continues to have abdominal pain to palpation so she is undergoing clear liquid diet with prep today for C scope in the morning. She is tolerating this thus far. She is afebrile and her vital signs are stable. Her hypokalemia and hypomagnesemia have both resolved. May be home tomorrow pending C scope results. Dr. Gómez will see and examine patient and further recommendations to follow. Current Visit: Yes (2) Antritis (stomach) Status: Acute Current Visit: Yes Hospitalist: Subjective Interval history: Patient is feeling a little bit better. She has not had any nausea or vomiting and she was tolerating a regular diet. She does continue to have abdominal pain that is tender to palpation. Patient is currently undergoing clear liquid diet with prep for C scope tomorrow by Dr. Tavera. Exam - Constitutional Vitals: Period Temp Pulse Resp BP Sys/Orosco Pulse Ox Last 24 Hr 97.1 F-98.2 F 80-90 16-18 135-158/81-89 94-98 Exam: 67-year-old white female, no acute distress, alert and oriented Chest clear CV regular rate and rhythm Abdomen soft, tender to palpation throughout Extremities no edema Results - Labs CBC & BMP: 04/12/17 04:48 04/15/17 05:26 Lab Results: I have reviewed the past 24 hour labs Quality Measures - Stroke Symptom Onset Unknown: No
[2017-04-15] MEDS: ONDANSETRON 4 MG/2 ML VIAL IV PRN (20:08)
[2017-04-15] MEDS: TEMAZEPAM 15 MG CAPSULE PO PRN (22:43)
[2017-04-16] MEDS: ONDANSETRON 4 MG/2 ML VIAL IV PRN (05:12)
[2017-04-16] MEDS ORDERED: MAGNESIUM CITRATE 300 ML BOTTLE PO ONE (06:00)
[2017-04-16] MEDS: metroNIDAZOLE INJ 500 MG in PREMIX 1 EACH IV SCH ×3 (06:20→17:52)
[2017-04-16] MEDS ORDERED: LIDOCAINE 1% 5 ML VIAL ONE (13:26)
[2017-04-16] MEDS ORDERED: PROPOFOL 200 MG/20 ML VIAL IV ONE (13:26)
--- NOTE | 2017-04-16 13:33 | History and Physical Update ---
History and Physical Update - Physical Exam Mental Status: alert and oriented Heart: regular rate and rhythm Lung: clear to auscultation Abdomen: within normal limits Vitals: within normal limits
--- NOTE | 2017-04-16 14:00 | Operative Note ---
Date of procedure: 04/16/17 Pre-op diagnosis: Colon cancer screening, history of colon polyps Procedure: Procedure note: Colonoscopy with snare polypectomy Physician: Dr. Rene Tavera Brief clinical abstract: 67-year-old female is admitted with recent nausea/ vomiting which has improved. She has past history of colon polyps with her last exam around 10 years ago. Endoscopic findings: After informed consent was obtained, the patient was placed in the left lateral decubitus position. Digital rectal exam was performed with no palpable abnormalities felt. Pediatric videocolonoscope was inserted into the rectum and advanced to the cecum without difficulty. Retroflex view within the cecum was performed back to the level of the hepatic flexure. The endoscope was advanced back to the cecum and on withdrawal colonic mucosa was carefully examined. Bowel prep was of good quality. Withdrawal time was over 6 minutes duration. Vascular pattern throughout the colon appeared normal. There was a 1.5-2 cm diameter sessile area of adenomatous appearing polyp tissue on the ileocecal valve which extended around into the terminal ileal opening. A photo was taken of this. I biopsied the margin of it and did not attempt to remove that. 3 other 5-8 mm polyps in the mid ascending and into the proximal transverse colon removed with snare using coagulation current. These were placed in a separate specimen bottle from the ileocecal valve polyp. 2 other 5-10 mm polyps in the mid to distal sigmoid colon were noted and removed with snare using coagulation current placing him in a separate specimen bottle labeled left colon. No diverticuli were seen. The endoscope was withdrawn in the rectum with retroflex view showing small internal hemorrhoids. The endoscope was removed and patient appeared to tolerate the procedure well. Impression: #1 multiple colon polyps-including fairly large sessile polyp on ileocecal valve which was not removed today. That polyp could possibly be removed with endoscopic mucosal resection but extension into the ileocecal junction would increase risk for perforation. #2 internal hemorrhoids Plan: Await pathology from above. Discussed with patient about treatment options after reviewing pathology for ileocecal valve polyp. Advance diet today and she could be discharged from GI standpoint with outpatient follow-up Anesthesia: other (tiva) Surgeon / Physician: Santiago Tavera Estimated blood loss: minimal Specimens: other (Multiple colon polyps) Condition: stable Disposition: post procedure unit Results - Labs CBC & BMP: 04/12/17 04:48 04/15/17 05:26 Discharge Plan - Discharge Medications No Action Estradiol Tab [Estrace Tab] 1 mg PO DAILY Celecoxib [Celebrex] 200 mg PO DAILY Temazepam [Restoril] 15 mg PO BEDTIME PRN PRN Reason: Sleep Fluoxetine HCl [Prozac] 40 mg PO QAM Pantoprazole Tab [Protonix Tab] 40 mg PO DAILY Morphine Sulfate [Morphine ER Cap] 60 mg PO BID ALPRAZolam [Xanax] 1 mg PO BID PRN PRN Reason: Anxiety Ondansetron HCl 8 mg PO Q8H PRN PRN Reason: Nausea/Vomiting Metoclopramide Tab [Reglan Tab] 10 mg PO Q8H PRN #7 tablet PRN Reason: Nausea - Follow Up or Referral - Forms/Instructions
[2017-04-16] MEDS: PANTOPRAZOLE 40 MG TABLET PO SCH (14:22)
[2017-04-16] MEDS: FLUoxetine 20 MG CAPSULE PO SCH (14:22)
[2017-04-16] MEDS: ESTRADIOL 1 MG TABLET PO SCH (14:22)
--- NOTE | 2017-04-16 14:38 | Anesthesia Post-Op ---
Anesthesia Post OP - Post Ansesthetic Evaluation Patient seen in post op: Yes Resp: within normal limits CV: within normal limits Mental: within normal limits Temp: within normal limits [id number]: within normal limits Nausea and Vomiting: within normal limits Pain: within normal limits
--- NOTE | 2017-04-16 15:13 | Discharge Summary ---
Hospital Course - Hospital Course Hospital Course: 67-year-old white female admitted by the hospitalist on 04/10/2017 with intractable nausea and vomiting with abdominal pain. She underwent EGD on 04/[address] Tavera where he found moderate antritis and a small hiatal hernia. Her nausea vomiting did resolve and she was tolerating a regular diet. She did continue to have abdominal pain to palpation so she underwent clear liquid diet and C scope prep. She underwent colonoscopy with snare polypectomy. He found multiple colon polyps including a fairly large sessile polyp on the ileocecal valve which was not removed. It could possibly be removed with endoscopic mucosal resection but extension into the ileocecal junction with increased risk for perforation. He also did find some internal hemorrhoids. Patient's diet has been advanced. She will need to follow-up with Dr. Tavera and he will notify her of pathology results and future appointment. Patient also had hypokalemia and hypomagnesemia upon admission that have both resolved. Complete discharge instructions were given. Care coordination, chart review, and completed discharge paperwork took approximately 41 minutes. - Time spent with patient Time with patient DS: Greater than 30 minutes Diagnosis - Discharge Diagnosis (1) Abdominal pain Status: Resolved (2) Antritis (stomach) Status: Acute (3) Intractable nausea and vomiting Status: Resolved (4) Hypokalemia Status: Resolved (5) Hypomagnesemia Status: Resolved Specialty Discharge - Follow Up or Referrals Discharge Plan - Discharge Data Disposition: Disch To Home/Self Care Condition at Discharge: Stable Discharge Diet: advance to your usual diet Activity: resume usual activities as tolerated Driving: no restrictions Contact your physician if you experience:: Nausea/Vomiting, Bleeding, pain uncontrolled by pain medications - Discharge Medications Continue Estradiol Tab [Estrace Tab] 1 mg PO DAILY Temazepam [Restoril] 15 mg PO BEDTIME PRN PRN Reason: Sleep Fluoxetine HCl [Prozac] 40 mg PO QAM Pantoprazole Tab [Protonix Tab] 40 mg PO DAILY Morphine Sulfate [Morphine ER Cap] 60 mg PO BID ALPRAZolam [Xanax] 1 mg PO BID PRN PRN Reason: Anxiety Ondansetron HCl 8 mg PO Q8H PRN PRN Reason: Nausea/Vomiting Metoclopramide Tab [Reglan Tab] 10 mg PO Q8H PRN #7 tablet PRN Reason: Nausea Discontinued Celecoxib [Celebrex] 200 mg PO DAILY - Follow Up or Referral Follow Up: Santiago Tavera MD [Physician] - (Dr. Tavera will call with biopsy results and follow-up appointment) - Forms/Instructions Instructions: Gastritis (DC), Vertigo (DC), Acute Abdominal Pain (DC) Exam - Constitutional Vitals: Period Temp Pulse Resp BP Sys/Orosco Pulse Ox Last 24 Hr 97.6 F-98.9 F 64-89 16-20 110-174/54-88 95-99 Exam: 67-year-old white female, no acute distress, alert and oriented Chest clear CV regular rate and rhythm Abdomen soft and mildly tender Extremities no edema DS: Provider Date of admission: 04/10/17 22:17 Primary care physician: Husam Petersen Attending physician on admission: Argentina Barnes MD Consults: 04/10/17 23:17 Consult to Physician [CONS] Routine Comment: vomiting Consulting Provider: Santiago Tavera Person Notified: PIPER Tavares Date Notified: 04/11/17 Time Notified: 08:52 04/11/17 01:04 Consult to Dietitian [CONS] Routine Reason for Dietitian: Dietary Consult Consult Comment: 30LB WEIGHT LOSS IN 3 WEEKS Discharging clinician: AMBAR Ingram Expected date of discharge: 04/16/17
[2017-04-16 16:20] VITALS: BP 120/72
[2017-04-16] MEDS: ACETAMINOPHEN 325 MG TABLET PO PRN (16:31)
--- NOTE | 2017-04-17 11:22 | Pathology Report from [facility] ---
[facility] ACCESSION # : [id number] PATIENT NAME : Ary Vance ORDERING DR : RAY FARRAR MD CLINICAL HX: #1 Cecal polyp #2 Colon polyp right #3 Colon polyp left POST-OP DX: Same SPECIMEN INFO: #1 Biopsy of cecal polyp #2 Colon polyp right colon #3 Colon polyp left colon GROSS DESCRIPTION: #1 Received in formalin labeled with the patients name ARY VANCE and #1 consists of a 0.3 x 0.2 cm katz mucosal tissue fragment. Submitted in cassette #1.#2 Received in formalin labeled with the patients name ARY VANCE and #2 consists of [id number] polypoid mucosal tissue fragments collectively measuring 1.5 x 0.6 cm. Submitted in cassette #2.#3 Received in formalin labeled with the patients name ARY VANCE and #3 consists of fragments of polypoid red-katz mucosal tissue measuring 1.0 x 0.6 cm. Submitted in cassette #3. DIAGNOSIS FOR ARY VANCE: #1 BIOPSY OF CECAL POLYP: Tubular adenoma.#2 COLON POLYP RIGHT COLON: Tubular adenoma.#3 COLON POLYP LEFT COLON: Tubulovillous adenoma. COLLECTED DATE: 04/16/2017 [facility] REPORT DATE: 04/17/2017 ELECTRONICALLY SIGNED BY: Melanie Olsen M.D. 04/17/2017 - 9:56:03 [facility]
== END 2017-04-16 18:30 | disposition home or self-care (01) | DRG 392 ==
LOC: N.ED 17:22 → SUATTDRO 22:17 → N.EDINP 22:22 → N.5E 22:41
PROVIDERS: ADMIT Internal Medicine; ATTEND Internal Medicine

== ENCOUNTER 2017-05-16 06:20 | Inpatient (IN) ==
[2017-05-13 12:07] LABS: Basophils % 0.4 % (0.0-0.8); Eosinophils # 0.2 10*3/uL (0.0-0.87); Eosinophils % 4.5 % (0.00-10.9); Hematocrit 35.2 VOL% (35.7-47.0); Hemoglobin 11.9 GM/DL (12.0-16.0); Immature Granulocytes % 0.2 %; Immature Granulocytes Absolute 0.01 #; Lymphocytes # 1.4 10*3/uL (1.4-4.0); Lymphocytes % 28.7 % (21.3-54.2); Mean Corpuscular HGB Conc 33.8 GM/DL (32-36); Mean Corpuscular Hemoglobin 31 PG (27-34); Mean Corpuscular Volume 91.4 FL (87-102); Mean Platelet Volume 8.7 FL (9.6-12.0); Monocytes # 0.5 10*3/uL (0.11-0.8); Monocytes % 9.8 % (1.7-12.7); Neutrophils # 2.8 10*3/uL (1.4-7.4); Neutrophils % 56.4 % (38.7-73.9); Platelet Count 247 T/CUMM (130-400); Red Blood Count 3.85 MC/CUMM (3.8-5.5); Red Cell Distribution Width 13.2 % (9.3-17.3); White Blood Count 4.9 T/CUMM (4-12)
[2017-05-13 12:26] LABS: Calcium 8.9 MG/DL (8.5-10.1); Osmolality,Calculated 280.3 MOS/KG (273-304); Potassium 3.8 MMOL/L (3.5-5.1)
[~2017-05-16 06:20] MED LIST: DIAZEPAM 5 MG TABLET PO ONE; FAMOTIDINE 20 MG TABLET PO ONE; SCOPOLAMINE 1.5 MG PATCH TRANSDERM ONE; cefOXitin 2,000 MG in SYRINGE 1 EACH IV ONE
[2017-05-16] MEDS ORDERED: LACTATED RINGERS 1,000 ML IV SCH (06:30)
[2017-05-16] MEDS ORDERED: SCOPOLAMINE 1.5 MG PATCH TRANSDERM ONE (07:30)
[2017-05-16] MEDS ORDERED: MIDAZOLAM 2 MG/2 ML VIAL ONE ×2 (07:30→11:03)
[2017-05-16] MEDS ORDERED: BUPIVACAINE 0.5% /EPI 10 ML VIAL ONE (08:11)
[2017-05-16] MEDS ORDERED: BUPIVACAINE 0.25% 50 ML VIAL ONE (09:36)
[2017-05-16] MEDS ORDERED: TISSUE ADHESIVE 1 EACH APPLICATOR TOP ONE (10:03)
[2017-05-16] MEDS ORDERED: MORPHINE PCA 30 MG/30 ML SYRINGE IV SCH (10:30)
[2017-05-16] MEDS ORDERED: ONDANSETRON 4 MG/2 ML VIAL IV PRN (10:31)
[2017-05-16] MEDS ORDERED: HYDROmorphone 2 MG/1 ML VIAL IV PRN (10:31)
[2017-05-16 10:32] LABS: Apearance,Urine Slightly Hazy (Clear); Bilirubin,Urine Negative (Negative); Blood, Urine Negative (Negative); Glucose,Urine (UA) Negative (Negative); Hyaline Casts,Urine 3 /LPF (0-3); Ketones,Urine Negative (Negative); Mucus,Urine Many /LPF (Occasional); Nitrite,Urine Negative (Negative); Protein,Urine Negative; RBC,Urine <1 /HPF (0-4); Squamous Epithelial Cell,Urine Occasional /HPF (0-10); Urine Color Yellow (Yellow); Urine Specific Gravity 1.023 (1.001-1.035); Urine Urobilinogen < 2.0 EU/DL (0.2-1.0); WBC,Urine 2 /HPF (0-6)
[2017-05-16] MEDS ORDERED: DESFLURANE 1 UNIT/15 MINUTE INH ONE (11:02)
[2017-05-16] MEDS ORDERED: PROPOFOL 200 MG/20 ML VIAL IV ONE (11:02)
[2017-05-16] MEDS ORDERED: EPINEPHrine 1 MG/ML VIAL ONE (11:03)
[2017-05-16] MEDS ORDERED: DEXAMETHASONE 10 MG/1 ML VIAL ONE (11:03)
[2017-05-16] MEDS ORDERED: LACTATED RINGERS 1,000 ML IV ONE (11:04)
[2017-05-16] MEDS ORDERED: ROCURONIUM 100 MG/10 ML VIAL IV ONE (11:04)
[2017-05-16] MEDS ORDERED: ACETAMINOPHEN 1,000 MG/100 ML VIAL IV ONE (11:04)
[2017-05-16] MEDS ORDERED: KETOROLAC 30 MG/1 ML VIAL ONE (11:04)
[2017-05-16] MEDS ORDERED: GLYCOPYRROLATE 0.4 MG/2 ML VIAL ONE (11:04)
[2017-05-16 11:12] LABS: Hematocrit 33.3 VOL% (35.7-47.0); Hemoglobin 11.6 GM/DL (12.0-16.0)
[2017-05-16] MEDS ORDERED: PNEUMOCOCCAL VACCINE (13 VALENT) 0.5 ML SYRINGE IM ONE (11:58)
[2017-05-16] MEDS ORDERED: HYDROmorphone 2 MG/1 ML VIAL IV ONE (12:16)
[2017-05-16] MEDS ORDERED: diphenhydrAMINE 50 MG/1 ML VIAL IV ONE (12:16)
[2017-05-16] MEDS: DEXTROSE 5% LACTATED RINGERS 1,000 ML IV SCH ×2 (13:51→23:05)
[2017-05-16] MEDS ORDERED: NALOXONE 0.4 MG/ML VIAL IV PRN (15:25)
[2017-05-16] MEDS: HYDROmorphone PCA 30 MG/30 ML SYRINGE IV SCH (15:45)
[2017-05-16] MEDS: ONDANSETRON 4 MG/2 ML VIAL IV PRN (15:49)
[2017-05-16] MEDS: cefOXitin 2,000 MG in SYRINGE 1 EACH IV SCH ×2 (16:06→21:06)
[2017-05-16] MEDS: KETOROLAC 15 MG/1 ML VIAL IV SCH ×2 (16:10→21:11)
[2017-05-16] MEDS ORDERED: PHENOL 1.4% THROAT SPRAY 177 ML BOTTLE PO PRN (16:22)
[2017-05-16 18:46] LABS: Hematocrit 29.8 VOL% (35.7-47.0); Hemoglobin 10.4 GM/DL (12.0-16.0)
[2017-05-16] MEDS: ALVIMOPAN 12 MG CAPSULE PO SCH (21:11)
[2017-05-17] MEDS: ALPRAZolam 0.5 MG TABLET PO PRN (00:27)
[2017-05-17] MEDS: TEMAZEPAM 15 MG CAPSULE PO PRN (00:27)
[2017-05-17] MEDS: DEXTROSE 5% LACTATED RINGERS 1,000 ML IV SCH ×3 (03:09→21:02)
[2017-05-17] MEDS: KETOROLAC 15 MG/1 ML VIAL IV SCH ×4 (03:09→20:59)
[2017-05-17] MEDS: cefOXitin 2,000 MG in SYRINGE 1 EACH IV SCH (03:09)
[2017-05-17 03:38] LABS: Basophils % 0.2 % (0.0-0.8); Hematocrit 27.4 VOL% (35.7-47.0); Hemoglobin 9.4 GM/DL (12.0-16.0); Immature Granulocytes % 0.4 %; Immature Granulocytes Absolute 0.04 #; Lymphocytes # 1.4 10*3/uL (1.4-4.0); Lymphocytes % 14.4 % (21.3-54.2); Mean Corpuscular HGB Conc 34.3 GM/DL (32-36); Mean Corpuscular Hemoglobin 31 PG (27-34); Mean Corpuscular Volume 90.4 FL (87-102); Mean Platelet Volume 9.1 FL (9.6-12.0); Monocytes # 0.7 10*3/uL (0.11-0.8); Monocytes % 7.3 % (1.7-12.7); Neutrophils # 7.5 10*3/uL (1.4-7.4); Neutrophils % 77.7 % (38.7-73.9); Platelet Count 203 T/CUMM (130-400); Red Blood Count 3.03 MC/CUMM (3.8-5.5); Red Cell Distribution Width 13.2 % (9.3-17.3); White Blood Count 9.7 T/CUMM (4-12)
[2017-05-17 03:39] LABS: Hematocrit 27.8 VOL% (35.7-47.0); Hemoglobin 9.5 GM/DL (12.0-16.0)
[2017-05-17 04:00] LABS: Calcium 8.5 MG/DL (8.5-10.1); Osmolality,Calculated 276.5 MOS/KG (273-304); Potassium 3.9 MMOL/L (3.5-5.1)
[2017-05-17] MEDS: ENOXAPARIN 40 MG/0.4 ML SYRINGE SUBCUT SCH (05:46)
[2017-05-17] MEDS: PANTOPRAZOLE 40 MG TABLET PO SCH (08:54)
[2017-05-17] MEDS: ALVIMOPAN 12 MG CAPSULE PO SCH ×2 (08:54→20:59)
[2017-05-17] MEDS: HYDROmorphone PCA 30 MG/30 ML SYRINGE IV SCH ×2 (14:29→23:01)
[2017-05-18] MEDS: TEMAZEPAM 15 MG CAPSULE PO PRN ×2 (00:36→21:21)
[2017-05-18] MEDS: ALPRAZolam 0.5 MG TABLET PO PRN (00:36)
[2017-05-18 05:54] LABS: Basophils % 0.3 % (0.0-0.8); Eosinophils # 0.5 10*3/uL (0.0-0.87); Eosinophils % 7.7 % (0.00-10.9); Hematocrit 25.9 VOL% (35.7-47.0); Hemoglobin 8.5 GM/DL (12.0-16.0); Immature Granulocytes % 0.2 %; Immature Granulocytes Absolute 0.01 #; Lymphocytes # 1.4 10*3/uL (1.4-4.0); Lymphocytes % 23.7 % (21.3-54.2); Mean Corpuscular HGB Conc 32.8 GM/DL (32-36); Mean Corpuscular Hemoglobin 31 PG (27-34); Mean Corpuscular Volume 94.9 FL (87-102); Mean Platelet Volume 9.8 FL (9.6-12.0); Monocytes # 0.4 10*3/uL (0.11-0.8); Monocytes % 7.6 % (1.7-12.7); Neutrophils # 3.5 10*3/uL (1.4-7.4); Neutrophils % 60.5 % (38.7-73.9); Platelet Count 155 T/CUMM (130-400); Red Blood Count 2.73 MC/CUMM (3.8-5.5); Red Cell Distribution Width 13.1 % (9.3-17.3); White Blood Count 5.8 T/CUMM (4-12)
[2017-05-18] MEDS: ENOXAPARIN 40 MG/0.4 ML SYRINGE SUBCUT SCH (06:32)
[2017-05-18] MEDS: KETOROLAC 15 MG/1 ML VIAL IV SCH ×2 (06:32→11:46)
[2017-05-18] MEDS: PANTOPRAZOLE 40 MG TABLET PO SCH (09:20)
[2017-05-18] MEDS: ALVIMOPAN 12 MG CAPSULE PO SCH ×2 (09:20→21:21)
[2017-05-18] MEDS: DEXTROSE 5% LACTATED RINGERS 1,000 ML IV SCH ×2 (09:25→13:22)
[2017-05-18] MEDS: ONDANSETRON 4 MG/2 ML VIAL IV PRN (14:49)
[2017-05-18] MEDS: HYDROmorphone PCA 30 MG/30 ML SYRINGE IV SCH (15:46)
[2017-05-18] MEDS: ALPRAZolam 0.5 MG TABLET PO SCH (21:21)
[2017-05-19 02:44] LABS: Basophils % 0.4 % (0.0-0.8); Eosinophils # 0.5 10*3/uL (0.0-0.87); Eosinophils % 8.7 % (0.00-10.9); Hematocrit 22.7 VOL% (35.7-47.0); Hemoglobin 7.9 GM/DL (12.0-16.0); Immature Granulocytes % 0.2 %; Immature Granulocytes Absolute 0.01 #; Lymphocytes # 1.3 10*3/uL (1.4-4.0); Lymphocytes % 22.9 % (21.3-54.2); Mean Corpuscular HGB Conc 34.8 GM/DL (32-36); Mean Corpuscular Hemoglobin 31 PG (27-34); Mean Corpuscular Volume 89.7 FL (87-102); Mean Platelet Volume 9.1 FL (9.6-12.0); Monocytes # 0.4 10*3/uL (0.11-0.8); Monocytes % 6.7 % (1.7-12.7); Neutrophils # 3.4 10*3/uL (1.4-7.4); Neutrophils % 61.1 % (38.7-73.9); Platelet Count 155 T/CUMM (130-400); Red Blood Count 2.53 MC/CUMM (3.8-5.5); Red Cell Distribution Width 12.8 % (9.3-17.3); White Blood Count 5.5 T/CUMM (4-12)
[2017-05-19 03:17] LABS: Calcium 7.7 MG/DL (8.5-10.1); Magnesium 1.7 MG/DL (1.8-2.4); Osmolality,Calculated 280.1 MOS/KG (273-304); Potassium 3.6 MMOL/L (3.5-5.1)
[2017-05-19] MEDS: ENOXAPARIN 40 MG/0.4 ML SYRINGE SUBCUT SCH (06:10)
[2017-05-19] MEDS: DEXTROSE 5% LACTATED RINGERS 1,000 ML IV SCH ×2 (06:11→13:20)
[2017-05-19] MEDS: ONDANSETRON 4 MG/2 ML VIAL IV PRN (08:33)
[2017-05-19] MEDS: MULTIVITAMIN (BEROCCA) TABLET PO SCH (10:01)
[2017-05-19] MEDS: FLUoxetine 20 MG CAPSULE PO SCH (10:01)
[2017-05-19] MEDS: ALPRAZolam 0.5 MG TABLET PO SCH ×2 (10:01→21:46)
[2017-05-19] MEDS: PANTOPRAZOLE 40 MG TABLET PO SCH (10:02)
[2017-05-19] MEDS: ALVIMOPAN 12 MG CAPSULE PO SCH (10:19)
[2017-05-19] MEDS ORDERED: SODIUM CHLORIDE 0.9% 1,000 ML IV PRN (12:04)
[2017-05-19] MEDS: HYDROmorphone PCA 30 MG/30 ML SYRINGE IV SCH (17:45)
[2017-05-19] MEDS: TEMAZEPAM 15 MG CAPSULE PO PRN (21:46)
[2017-05-20 05:35] LABS: Hematocrit 29.2 VOL% (35.7-47.0); Hemoglobin 10.1 GM/DL (12.0-16.0)
[2017-05-20] MEDS: ENOXAPARIN 40 MG/0.4 ML SYRINGE SUBCUT SCH (05:38)
[2017-05-20] MEDS ORDERED: MORPHINE 2 MG/1 ML SYRINGE IV PRN (07:31)
[2017-05-20] MEDS: MULTIVITAMIN (BEROCCA) TABLET PO SCH (08:21)
[2017-05-20] MEDS: ALPRAZolam 0.5 MG TABLET PO SCH ×2 (08:21→20:33)
[2017-05-20] MEDS: PANTOPRAZOLE 40 MG TABLET PO SCH (08:21)
[2017-05-20] MEDS: FLUoxetine 20 MG CAPSULE PO SCH (08:21)
[2017-05-21] MEDS: TEMAZEPAM 15 MG CAPSULE PO PRN
[2017-05-21 06:00] LABS: Basophils % 0.5 % (0.0-0.8); Eosinophils # 0.7 10*3/uL (0.0-0.87); Eosinophils % 12.1 % (0.00-10.9); Hematocrit 29.7 VOL% (35.7-47.0); Hemoglobin 10.9 GM/DL (12.0-16.0); Immature Granulocytes % 0.3 %; Immature Granulocytes Absolute 0.02 #; Lymphocytes # 1.2 10*3/uL (1.4-4.0); Lymphocytes % 19.7 % (21.3-54.2); Mean Corpuscular HGB Conc 36.7 GM/DL (32-36); Mean Corpuscular Hemoglobin 32 PG (27-34); Mean Corpuscular Volume 87.4 FL (87-102); Mean Platelet Volume 9.3 FL (9.6-12.0); Monocytes # 0.4 10*3/uL (0.11-0.8); Monocytes % 6.8 % (1.7-12.7); Neutrophils # 3.6 10*3/uL (1.4-7.4); Neutrophils % 60.6 % (38.7-73.9); Platelet Count 185 T/CUMM (130-400); Red Cell Distribution Width 12.6 % (9.3-17.3); White Blood Count 5.9 T/CUMM (4-12)
[2017-05-21] MEDS: ENOXAPARIN 40 MG/0.4 ML SYRINGE SUBCUT SCH (06:11)
[2017-05-21 06:23] LABS: Eosinophils 7 % (0-10); Giant Platelets Few; Hypochromasia 1+; Lymphocytes 16 % (20-55); Ovalocytes Slight; Platelet Estimate Normal; Segmented Neutrophils 71 % (50-85); Total Cells Counted 100
[2017-05-21 06:25] LABS: Calcium 8.6 MG/DL (8.5-10.1); Osmolality,Calculated 276.4 MOS/KG (273-304); Potassium 3.4 MMOL/L (3.5-5.1)
[2017-05-21 07:52] VITALS: BP 136/75
[2017-05-21] MEDS: MULTIVITAMIN (BEROCCA) TABLET PO SCH (09:01)
[2017-05-21] MEDS: FLUoxetine 20 MG CAPSULE PO SCH (09:01)
[2017-05-21] MEDS: ALPRAZolam 0.5 MG TABLET PO SCH (09:01)
[2017-05-21] MEDS: PANTOPRAZOLE 40 MG TABLET PO SCH (09:01)
[2017-05-21] MEDS: DEXTROSE 5% LACTATED RINGERS 1,000 ML IV SCH (09:33)
== END 2017-05-21 12:31 | disposition home or self-care (01) | DRG 331 ==
LOC: N.OR 06:20 → N.SDSINP 06:21 → N.3E 10:17
PROVIDERS: ADMIT Surgery; ATTEND Surgery